=== PATIENT | female | born 1960 | race Caucasian/White ===

== ENCOUNTER 2021-08-29 06:22 | Day surgery (SDC) | payer OTHER ==
[2021-08-29] MEDS ORDERED: Lactated Ringers 1,000 ML IV SCH (07:00)
[2021-08-29] MEDS ORDERED: DIPRIVAN 200 MG/20 ML IV ONE ×2 (07:52→08:12)
[2021-08-29] MEDS ORDERED: Versed 2 MG/2 ML Injection ONE (07:52)
[2021-08-29] MEDS ORDERED: Lactated Ringers 1,000 ML IV ONE (08:31)
[2021-08-29 09:30] VITALS: BP 107/61; PULSE 76; O2SAT 99
--- NOTE | 2021-09-04 09:17 | OP ---
SURGERY DATE/TIME: 08/29/2021 0800 PREOPERATIVE DIAGNOSIS: Follow up history of colon polyps. POSTOPERATIVE DIAGNOSIS: Normal colon. PROCEDURE: Colonoscopy. SURGEON: Caleb De La O M.D. ANESTHESIA: MAC by Jorden Lee CRNA. ESTIMATED BLOOD LOSS: None. SPECIMENS: None. DESCRIPTION OF PROCEDURE: After informed written consent was obtained, the patient was taken to the endoscopy suite. She was placed in left lateral decubitus position and anesthesia was titrated to the desired level of consciousness. Digital rectal exam showed normal sphincter tone and no internal lesions. The scope was inserted into the rectum and sequentially the entire colonic mucosa was traversed. The level of cecum was reached and verified with direct visualization of the ileocecal valve. Upon withdrawal careful mucosal inspection revealed no gross abnormalities. There were no polyps or areas of ulceration or other areas of concern on the mucosal structures throughout the entire length of the colon. Prior to withdrawal retroflexion was performed and showed no internal lesions. The scope was removed. The patient was transferred to the recovery room in good condition.
== END 2021-08-29 09:30 | disposition home or self-care (01) ==
LOC: SDC 06:22
PROVIDERS: ATTEND Family Medicine
DX: Z09 Encounter for follow-up examination after completed treatment for conditions other than malignant neoplasm (principal); Z86.010 Personal history of colon polyps
CPT/HCPCS: J2250; J2704